=== PATIENT | female | born 1945 | race Caucasian/White ===

== ENCOUNTER 2019-02-11 05:23 | Inpatient (IN) | payer MEDICARE, BC ==
[2019-02-05 14:18] LABS: ALBUMIN 4.2 G/DL (3.4-5.0); ALBUMIN/GLOBULIN RATIO 1.3 (1.1-1.5); ALKALINE PHOSPHATASE 85 IU/L (46-116); BLOOD UREA NITROGEN 14 MG/DL (7-18); BUN/CREATININE RATIO 21.2 (6.6-38.0); CALCIUM 8.8 MG/DL (8.5-10.1); CHLORIDE 99 MMOL/L (99-107); CREATININE 0.66 MG/DL (0.40-0.90); PRE OP ALT 40 U/L (30-65); PRE OP ANION GAP 11 (8-16); PRE OP AST 21 U/L (10-37); PRE OP BILIRUB, TOTAL 0.3 MG/DL (0.0-1.0); PRE OP GLUCOSE 88 MG/DL (70-104); PRE OP POTASSIUM 3.5 MMOL/L (3.4-5.1); PRE OP SODIUM 135 MMOL/L (135-145); TOTAL CARBON DIOXIDE 25.5 MMOL/L (24-32); TOTAL PROTEIN 7.4 G/DL (6.4-8.2); eGFR 88 ML/MIN
[2019-02-05 14:18] LABS: INR 1.1 INR; PRE OP PARTIAL THROMB. TIME 31 SECONDS (22-32)
[2019-02-05 16:09] LABS: BASOPHILS # (AUTO) 0.1 X10'3 (0-0.2); BASOPHILS % (AUTO) 1.1 % (0-1); EOSINOPHILS # (AUTO) 0.2 X10'3 (0-0.9); LYMPHOCYTES # (AUTO) 1.7 X10'3 (1.1-4.8); LYMPHOCYTES % (AUTO) 22.5 % (21-51); MEAN CORPUSCULAR HEMOGLOBIN 26.8 PG (27.0-31.0); MEAN CORPUSCULAR HGB CONC 32.9 g/dL (33.0-36.5); MEAN CORPUSCULAR VOLUME 81.5 FL (78-98); MEAN PLATELET VOLUME 9.1 FL (7.4-10.4); MONOCYTES # (AUTO) 0.5 X10'3 (0-0.9); NEUTROPHILS # (AUTO) 5.2 X10'3 (1.8-7.7); NEUTROPHILS % (AUTO) 67.4 % (42-75); PRE OP HEMATOCRIT 41.8 % (35.0-45.0); PRE OP HEMOGLOBIN 13.8 g/dL (12.0-16.0); PRE OP PLATELET COUNT 264 X10'3 (140-440); RED BLOOD COUNT 5.14 X10'6 (4.20-5.60); RED CELL DISTRIBUTION WIDTH 18.7 % (11.5-14.5)
[2019-02-05 16:40] LABS: ANISOCYTOSIS 2+; ELLIPTOCYTES FEW; PLATELET ESTIMATE NORMAL; SCHISTOCYTES FEW
[2019-02-11] VITALS (21 sets, daily range): BP systolic 89–148; BP diastolic 46–78
[~2019-02-11] VITALS: Ht 149.9 cm; Wt 72.1 kg
[~2019-02-11 05:23] MED LIST: AMLO10TA PO; CHOL100062 PO; CYCL-1 PO; LACT1CAP65 PO; LEVO75TA PO; MULT-1085 PO; OMEP20CA10 PO; SIMV20TA5 PO; VALA-7 PO; ringers solution, lacted 1,000 ML IV SCH
[2019-02-11] MEDS ORDERED: ceFAZolin 2gm in dextrose, iso 100 ML IV ONE (05:30)
[2019-02-11] MEDS ORDERED: gabapentin 300mg capsule PO ONE (05:30)
[2019-02-11] MEDS ORDERED: oxyCODONE SR 10mg (sust. release) tab PO ONE (05:30)
[2019-02-11] MEDS ORDERED: famotidine 20mg tablet PO ONE (05:30)
[2019-02-11] MEDS ORDERED: metoclopramide 5 mg/ml inj IV ONE (05:30)
[2019-02-11] MEDS ORDERED: acetaminophen 325mg tablet PO ONE (05:30)
[2019-02-11] MEDS ORDERED: vancomycin inj 1,500 MG in normal saline 300ml IV soln IV ONE (05:30)
[2019-02-11] MEDS ORDERED: tranexamic acid inj. 1,000 MG in normal saline 100 ML IV ONE (05:30)
[2019-02-11] MEDS ORDERED: LIDOcaine 1% (10mg/ml) 2ml vial ONE (05:49)
[2019-02-11] MEDS ORDERED: vancomycin 1,000mg inj ONE (06:59)
[2019-02-11] MEDS ORDERED: Thrombin (Bovine) 5,000 unit vial TP ONE (06:59)
[2019-02-11] MEDS ORDERED: ceFAZolin 1000mg inj ONE (06:59)
[2019-02-11] MEDS ORDERED: acetaminophen 1,000mg/100ml IV 100 ML IV ONE (07:18)
[2019-02-11] MEDS ORDERED: ROPIVAcaine 0.5% (5mg/ml) 30ml vial ONE (07:18)
[2019-02-11] MEDS ORDERED: fentaNYL/PF 50MCG/1 ML 2ML syringe ONE ×2 (07:24→10:06)
[2019-02-11] MEDS ORDERED: midazolam 2 mg/2 ml injection ONE (07:24)
[2019-02-11] MEDS ORDERED: propofol inj 20 ML IV ONE (07:27)
[2019-02-11] MEDS ORDERED: ondansetron/PF 4mg/2ml inj ONE (07:27)
[2019-02-11] MEDS ORDERED: LIDOcaine 2% (20mg/ml) 5ml vial ONE (07:27)
[2019-02-11] MEDS ORDERED: hydrALAZINE 20mg/ml inj. IV PRN (07:30)
[2019-02-11] MEDS ORDERED: morphine 4 MG/ML inj SYRINge IV PRN ×2 (07:30)
[2019-02-11] MEDS ORDERED: ondansetron/PF 4mg/2ml inj IV PRN ×2 (07:30→10:05)
[2019-02-11] MEDS ORDERED: fentaNYL/PF 50MCG/1 ML 2ML syringe IV PRN ×2 (07:30)
[2019-02-11] MEDS ORDERED: labetalol 20mg/4ml (5mg/ml) syringe IV PRN (07:30)
[2019-02-11] MEDS ORDERED: ringers solution, lacted 1,000 ML IV SCH (07:30)
[2019-02-11] MEDS ORDERED: sevoflurane 250ml liquid IH ONE (07:40)
[2019-02-11] MEDS ORDERED: ePHEDrine 50MG/ML INJ. ONE (08:12)
[2019-02-11] MEDS ORDERED: ROPIVAcaine 0.2%/PF PAIN PUMP 550 ML IJ SCH (08:59)
[2019-02-11] MEDS ORDERED: calcium chloride 100 MG/1 ML inj IV ONE (09:01)
[2019-02-11] MEDS ORDERED: dexamethasone sod phosphate 4mg/ml inj. ONE (09:20)
[2019-02-11] MEDS ORDERED: magnesium hydroxide 30ml (MOM) UD suspension PO PRN (10:05)
[2019-02-11] MEDS ORDERED: HYDROmorphone 1 mg/ml syringe IV PRN (10:05)
[2019-02-11] MEDS ORDERED: diphenhydrAMINE 25mg capsule PO PRN ×2 (10:05)
[2019-02-11] MEDS ORDERED: bisacodyl 10mg suppository rectal RC PRN (10:05)
[2019-02-11] MEDS ORDERED: acetaminophen 325mg tablet PO PRN (10:05)
[2019-02-11] MEDS ORDERED: oxyCODONE IR 5mg (immed. release) tablet PO PRN (10:05)
[2019-02-11] MEDS ORDERED: HYDROmorphone inj. 0.5 MG/0.5 ML DISP.SYRIN IV PRN (10:05)
--- NOTE | 2019-02-11 10:17 | NUR ---
Received from OR via BED, accompanied by Anesthesiologist DR RIVERA and report given by Anesthesiologist. PT VERY DROWSY, NO S/S OF DISTRESS/DISCOMFORT, RIGHT SHOULDER W/DRSG, ICE PACK, SHOULDER WRAP, SLING, FINGERS PWD. Addendum: 02/11/19 at 1052 by Shaneka Oshea RN Amended: Links added.
--- NOTE | 2019-02-11 11:47 | NUR ---
Report called to receiving nurse. Transferred via BED, 1 BAG OF PERSONAL Belongings SENT W/PT TO ROOM 401, [facility], CALL LIGHT GIVEN TO PT, SIDE RAILS UP X 2, RECEIVING RN AT BEDSIDE, PTS PRESENT. Special Issues communicated to receiving nurse. YES. Addendum: 02/11/19 at 1207 by Shaneka Oshea RN Amended: Links added.
--- NOTE | 2019-02-11 11:50 | NUR ---
pt arrived on floor in ortho bed very sleepy received report from janusz bowens
[2019-02-11] MEDS ORDERED: cyclobenzaprine 10mg tablet PO PRN (12:40)
[2019-02-11] MEDS ORDERED: tranexamic acid inj. 720 MG in normal saline 100ml IV soln 100 ML IV ONE (13:00)
[2019-02-11] MEDS: gabapentin 300mg capsule PO SCH ×2 (13:20→20:10)
[2019-02-11] MEDS: acetaminophen 325mg tablet PO SCH ×2 (13:45→20:10)
[2019-02-11] MEDS ORDERED: polyvinyl alcohol ophthalmic drops 15ml bottle EACHEYE PRN (13:55)
[2019-02-11] MEDS: potassium cl 20mEq in 1/2 NS 1,000 ML IV SCH ×2 (14:35→16:07)
[2019-02-11] MEDS: ceFAZolin 1GM/D5W- ADD-VANTAGE 50 ML IV SCH (16:06)
--- NOTE | 2019-02-11 18:18 | NUR ---
RECEIVED REPORT FROM OLLIE HOANG AND ASSUMED PATIENT CARE Addendum: 02/11/19 at 1828 by Ritu Carty RN RECEIVED REPORT FROM NIDHI HOANG
--- NOTE | 2019-02-11 18:28 | NUR ---
gave report to janusz perez
[2019-02-11] MEDS ORDERED: vancomycin/NS 1 GM ADD-VANTAGE 250 ML IV SCH (20:00)
[2019-02-11] MEDS: valacyclovir 500mg tablet PO SCH (20:09)
[2019-02-11] MEDS ORDERED: atorvastatin 10mg tablet PO SCH (21:00)
[2019-02-11] MEDS ORDERED: sennosides 8.6mg tablet PO SCH (21:00)
--- NOTE | 2019-02-11 22:02 | NUR ---
REPORT GIVEN TO LYNNETTE HOANG
--- NOTE | 2019-02-11 23:00 | NUR ---
report received from VIKTOR Maya
[2019-02-12] MEDS: ceFAZolin 1GM/D5W- ADD-VANTAGE 50 ML IV SCH (00:13)
[2019-02-12 02:00] VITALS: BP 138/65
[2019-02-12] MEDS: potassium cl 20mEq in 1/2 NS 1,000 ML IV SCH ×2 (02:01→02:49)
[2019-02-12] MEDS: acetaminophen 325mg tablet PO SCH ×3 (02:06→15:36)
[2019-02-12] MEDS: oxyCODONE IR 5mg (immed. release) tablet PO PRN ×3 (05:35→15:35)
[2019-02-12 06:11] LABS: ANION GAP 10 (8-16); CHLORIDE 104 MMOL/L (99-107); POTASSIUM 3.9 MMOL/L (3.5-5.1); SODIUM 138 MMOL/L (135-145); TOTAL CARBON DIOXIDE 24.4 MMOL/L (24-32)
[2019-02-12 06:22] LABS: BASOPHILS % (AUTO) 0.1 % (0-1); EOSINOPHILS % (AUTO) 0 % (0-6); HEMATOCRIT 37.9 % (35.0-45.0); HEMOGLOBIN 12.5 g/dl (12.0-16.0); LYMPHOCYTES # (AUTO) 0.9 X10'3 (1.1-4.8); LYMPHOCYTES % (AUTO) 7.6 % (21-51); MEAN CORPUSCULAR HEMOGLOBIN 26.6 PG (27.0-31.0); MEAN CORPUSCULAR VOLUME 80.5 FL (78-98); MEAN PLATELET VOLUME 9.2 FL (7.4-10.4); MONOCYTES # (AUTO) 0.9 X10'3 (0-0.9); MONOCYTES % (AUTO) 7.5 % (2-12); NEUTROPHILS # (AUTO) 10.1 X10'3 (1.8-7.7); NEUTROPHILS % (AUTO) 84.8 % (42-75); PLATELET COUNT 235 X10'3 (140-440); RED BLOOD COUNT 4.71 X10'6 (4.20-5.60); RED CELL DISTRIBUTION WIDTH 18.6 % (11.5-14.5); WHITE BLOOD COUNT 11.9 X10'3 (4.5-11.0)
[2019-02-12 06:30] VITALS: BP 148/69
--- NOTE | 2019-02-12 06:30 | NUR ---
I have received patient report from Analilia HOANG
[2019-02-12] MEDS ORDERED: levoTHYROXINE 75mcg tablet PO SCH (07:00)
[2019-02-12] MEDS: gabapentin 300mg capsule PO SCH ×2 (07:17→12:39)
[2019-02-12] MEDS ORDERED: pantoprazole 40mg Tablet.DR PO SCH (07:30)
[2019-02-12] MEDS: valacyclovir 500mg tablet PO SCH (08:00)
[2019-02-12] MEDS ORDERED: vitamin D (cholecalciferol) 1,000 unit tablet PO SCH (08:00)
[2019-02-12] MEDS ORDERED: lactobacillus rhamnosus 10,000 MMU CELLS/CAPSULE PO SCH (08:00)
[2019-02-12] MEDS ORDERED: amLODIPine 5mg tablet PO SCH (08:00)
[2019-02-12] MEDS ORDERED: aspirin 325mg tablet PO SCH (08:30)
--- NOTE | 2019-02-12 08:38 | NUR ---
onq boosted to 8ml/hr
[2019-02-12 10:00] VITALS: BP 149/68
[2019-02-12 11:21] LABS: ANISOCYTOSIS 2+; BURR CELLS FEW; ELLIPTOCYTES FEW; PLATELET ESTIMATE NORMAL; SCHISTOCYTES FEW
--- NOTE | 2019-02-12 13:28 | NUR ---
Joint replacement consult: Pt seen by ROOSEVELT for written/verbal high protein ed. RD reviewed high protein needs for wound healing, immune strength, high protein foods, and protein supplementation options. RD contact information provided in case of further questions. Pt agrees to [facility] high protein carmen MUHAMMAD; and dietary notified. Addendum: 02/12/19 at [address] Amended: Links added.
[2019-02-12 14:00] VITALS: BP 106/42
--- NOTE | 2019-02-12 17:20 | NUR ---
Patient discharged with they were taught all discharge instruction. She had all personal belongings.
[2019-02-12] MEDS ORDERED: High Protein Smoothie Arginine/Glut./Ca2+Bmb (Juven 19.3pkt) 240ml cup PO SCH (17:30)
[2019-02-13] MEDS ORDERED: acetaminophen 325mg tablet PO PRN (10:05)
== END 2019-02-12 17:20 | disposition home or self-care (01) | DRG 483 ==
LOC: PAS IN 05:23 → EDSTATUS 07:30 → ORTHO 4S 11:50
PROVIDERS: ADMIT Orthopaedic Surgery; ATTEND Orthopaedic Surgery
PROC: 3E0T3BZ Introduction of Anesthetic Agent into Peripheral Nerves and Plexi, Percutaneous Approach (ICD-10-PCS; 2019-02-11)
PROC: 0RRJ0JZ Replacement of Right Shoulder Joint with Synthetic Substitute, Open Approach (ICD-10-PCS; principal; 2019-02-11 07:40)
DX: M19.011 Primary osteoarthritis, right shoulder (principal); E03.9 Hypothyroidism, unspecified; E78.5 Hyperlipidemia, unspecified; E66.9 Obesity, unspecified; I10 Essential (primary) hypertension; K21.9 Gastro-esophageal reflux disease without esophagitis; G89.29 Other chronic pain; M54.9 Dorsalgia, unspecified; Z68.32 Body mass index [BMI] 32.0-32.9, adult; Z88.5 Allergy status to narcotic agent; Z91.048 Other nonmedicinal substance allergy status
CPT/HCPCS: 36415; 71046; 73020; 80051; 80053; 82948; 84443; 85025; 85610; 85730; 87070; 97110; 97116; 97161; 97530; A4565; A7000; C1713; C1776; G0378; J0131; J0690; J1100; J2001; J2250; J2405; J2704; J2765; J2795; J3010; J3370; J3490; J7030; J7120

== ENCOUNTER → 2023-10-17 | Outpatient (CLI) | payer MEDICARE, BC ==
[~2023-10-17] VITALS: Ht 149.9 cm; Wt 72.0 kg
[2023-10-17] VITALS (7 sets, daily range): BP systolic 147–182; BP diastolic 61–77; PULSE 64–85; RESP 18; O2SAT 98
[~2023-10-17] MED LIST changes: +ACET-3071 PO; +ALEN70TA80 PO; +ALLER-TEC; +ATOR20TA66 PO; +CALCIUM; +CARB15DR EACHEYE; -CYCL-1 PO; +CYCL5TAB PO; -LACT1CAP65 PO; +LOSA100T58 PO; -MULT-1085 PO; -OMEP20CA10 PO; +OMEP20CA15 PO; -SIMV20TA5 PO; +aminophylline 250mg/10ml inj. IV PRN; +nitroGLYCERIN 0.4mg SUBLingual tab SL PRN; +regadenoson 0.4mg/5ml syringe IV ONE; -ringers solution, lacted 1,000 ML IV SCH
== END | disposition home or self-care (01) ==
LOC: NM 07:43
PROVIDERS: ATTEND Internal Medicine Cardiovascular Disease
DX: R94.31 Abnormal electrocardiogram [ECG] [EKG] (principal)
CPT/HCPCS: 78452; 93017; A9500; J2785

== ENCOUNTER 2023-10-22 11:05 | Day surgery (SDC) | payer MEDICARE, BC ==
[2023-10-16 11:55] LABS: BILIRUBIN,URINE NEGATIVE (Neg); CLARITY,URINE CLEAR (Clear); COLOR,URINE STRAW (Yellow); GLUCOSE, URINE NEGATIVE (Neg); KETONES,URINE NEGATIVE (Neg); LEUKOCYTE ESTERASE ,URINE NEGATIVE (Neg); NITRITES, URINE NEGATIVE (Neg); OCCULT BLOOD,URINE NEGATIVE (Neg); PROTEIN,URINE NEGATIVE (Neg); UROBILINOGEN,URINE 0.2 E.U/dL (0.2-1.0)
[2023-10-16 12:12] LABS: UA COLLECTION TYPE VOIDED
[2023-10-16 12:13] LABS: BASOPHILS # (AUTO) 0.1 X10'3 (0-0.2); BASOPHILS % (AUTO) 1.2 % (0-1); EOSINOPHILS # (AUTO) 0.1 X10'3 (0-0.9); EOSINOPHILS % (AUTO) 2.1 % (0-6); LYMPHOCYTES # (AUTO) 1.5 X10'3 (1.1-4.8); MEAN CORPUSCULAR HEMOGLOBIN 30.1 PG (27.0-31.0); MEAN CORPUSCULAR HGB CONC 33.1 g/dL (33.0-36.5); MEAN CORPUSCULAR VOLUME 90.9 FL (78-98); MEAN PLATELET VOLUME 8.5 FL (7.4-10.4); MONOCYTES # (AUTO) 0.5 X10'3 (0-0.9); MONOCYTES % (AUTO) 7.6 % (2-12); NEUTROPHILS # (AUTO) 4.3 X10'3 (1.8-7.7); NEUTROPHILS % (AUTO) 66.1 % (42-75); PRE OP HEMOGLOBIN 14.5 g/dL (12.0-16.0); PRE OP PLATELET COUNT 251 X10'3 (140-440); PRE OP WHITE BLOOD COUNT 6.5 10'3 (4.8-10.8); RED BLOOD COUNT 4.84 X10'6 (4.20-5.60); RED CELL DISTRIBUTION WIDTH 15.2 % (11.5-14.5)
[2023-10-16 12:25] LABS: PRE OP PROTIME 10.8 SECONDS (9.0-12.0)
[2023-10-16 12:39] LABS: ALBUMIN 4.2 G/DL (3.4-5.0); ALBUMIN/GLOBULIN RATIO 1.1 (1.1-1.5); ALKALINE PHOSPHATASE 90 IU/L (46-116); BLOOD UREA NITROGEN 22 MG/DL (7-18); BUN/CREATININE RATIO 30.1 (10.0-20.0); CALCIUM 9.1 MG/DL (8.5-10.1); CHLORIDE 100 MMOL/L (99-107); CREATININE 0.73 MG/DL (0.40-0.90); PRE OP ALT 26 U/L (30-65); PRE OP ANION GAP 10 (8-16); PRE OP AST 15 U/L (10-37); PRE OP BILIRUB, TOTAL 0.5 MG/DL (0.0-1.0); PRE OP GLUCOSE 92 MG/DL (70-104); PRE OP POTASSIUM 3.6 MMOL/L (3.4-5.1); PRE OP SODIUM 136 MMOL/L (135-145); THYROID STIMULATING HORMONE 2.35 ulU/ml (0.34-4.50); TOTAL PROTEIN 7.9 G/DL (6.4-8.2); eGFR 77 ML/MIN
[~2023-10-22] VITALS: Ht 149.9 cm; Wt 71.7 kg
[~2023-10-22 11:05] MED LIST changes: -ALLER-TEC; +CALC600T14 PO; -CALCIUM; +CETI10TA14 PO; -CHOL100062 PO; +CHOL20002 PO; -aminophylline 250mg/10ml inj. IV PRN; +cefazolin 2gm/D5W 100mL 100 ML IV ONE; +famotidine 20mg tablet PO ONE; -nitroGLYCERIN 0.4mg SUBLingual tab SL PRN; -regadenoson 0.4mg/5ml syringe IV ONE; +ringers solution, lacted 1,000 ML IV SCH; +tranexamic acid inj. 1,000 MG in normal saline IV soln 100ML IV ONE
[2023-10-22] MEDS ORDERED: morphine 4 MG/ML inj SYRINge IV PRN (11:40)
[2023-10-22] MEDS ORDERED: proCHLORperazine 10 MG/2 ml inj IV PRN (11:40)
[2023-10-22] MEDS ORDERED: meperidine/PF 25mg/ml syringe IV PRN ×3 (11:40)
[2023-10-22] MEDS ORDERED: labetalol 20mg/4ml (5mg/ml) syringe IV PRN (11:40)
[2023-10-22] MEDS ORDERED: morphine 2 MG/ML inj. syringe IV PRN (11:40)
[2023-10-22] MEDS ORDERED: ringers solution, lacted 1,000 ML IV SCH (11:40)
[2023-10-22] MEDS ORDERED: ondansetron/PF 4mg/2ml inj IV PRN (11:40)
[2023-10-22] MEDS ORDERED: enalaprilat dihydrate 2.5mg/2ml vial IV PRN (11:40)
[2023-10-22] MEDS ORDERED: vancomycin 1,000mg inj ONE (11:53)
[2023-10-22] MEDS ORDERED: methylene blue (5mg/ml) 50mg/10ml ampul IV ONE (11:54)
== END 2023-10-22 11:30 | disposition home or self-care (01) ==
LOC: UNDOADMIN 11:05 → PAS IN 11:05 → PAS 11:05 → EDSTATUS 14:00
PROVIDERS: ATTEND Specialist
DX: T84.098A Other mechanical complication of other internal joint prosthesis, initial encounter (principal); Z53.8 Procedure and treatment not carried out for other reasons; E78.5 Hyperlipidemia, unspecified; I10 Essential (primary) hypertension; E03.9 Hypothyroidism, unspecified; M19.032 Primary osteoarthritis, left wrist; M17.0 Bilateral primary osteoarthritis of knee; G89.29 Other chronic pain; Z79.899 Other long term (current) drug therapy; Z88.5 Allergy status to narcotic agent; Z72.89 Other problems related to lifestyle; Z98.890 Other specified postprocedural states; F10.91 Alcohol use, unspecified, in remission; Z96.643 Presence of artificial hip joint, bilateral; Z91.048 Other nonmedicinal substance allergy status; Z79.01 Long term (current) use of anticoagulants; Y83.8 Other surgical procedures as the cause of abnormal reaction of the patient, or of later complication, without mention of misadventure at the time of the procedure; Y92.89 Other specified places as the place of occurrence of the external cause
CPT/HCPCS: 36415; 71046; 80053; 81003; 84443; 85025; 85610; 85730; 86870; 86885; 86900; 86901; 86922; 87081; J0690; J3490; J7120; 86902; 86905; J3370; Q9968

== ENCOUNTER 2024-08-05 09:24 | Outpatient (CLI) | payer MEDICARE, OTHER ==
[~2024-08-05 09:24] MED LIST changes: +KEN0.1O TP; +ONDA-243 PO; -VALA-7 PO; +VALA100031 PO; -cefazolin 2gm/D5W 100mL 100 ML IV ONE; -famotidine 20mg tablet PO ONE; -ringers solution, lacted 1,000 ML IV SCH; -tranexamic acid inj. 1,000 MG in normal saline IV soln 100ML IV ONE
== END 2024-08-05 23:59 | disposition home or self-care (01) ==
LOC: RAD 09:24
PROVIDERS: ATTEND Specialist
DX: S42.124A Nondisplaced fracture of acromial process, right shoulder, initial encounter for closed fracture (principal); M25.511 Pain in right shoulder; Z96.611 Presence of right artificial shoulder joint; T84.098D Other mechanical complication of other internal joint prosthesis, subsequent encounter; X58.XXXA Exposure to other specified factors, initial encounter; Y93.89 Activity, other specified; Y92.89 Other specified places as the place of occurrence of the external cause; Y99.8 Other external cause status; X58.XXXD Exposure to other specified factors, subsequent encounter
CPT/HCPCS: 73200; 76377

== ENCOUNTER 2025-04-24 13:46 | Emergency (ER) | payer MEDICARE, OTHER ==
[~2025-04-24] VITALS: Ht 149.9 cm; Wt 79.1 kg
[~2025-04-24 13:46] MED LIST changes: +CYCL-920 PO; -CYCL5TAB PO
[2025-04-24 13:48] VITALS: BP 158/62; PULSE 69; TEMP 97.9; O2SAT 97
--- NOTE | 2025-04-24 16:18 | RADIOLOGY REPORT ---
X-ray left knee Technique: Lateral and oblique views REASON FOR EXAM: KNEE PAIN INDICATION: KNEE PAIN FINDINGS: No fractures or dislocations. No erosions or periosteal reaction. On the lateral there is n arrowing of the patellofemoral joint space with downward osteophyte formation IMPRESSION: 1. Degenerative changes of the patellofemoral joint
--- NOTE | 2025-04-24 17:30 | Physician Documentation ---
History of Present Illness ~ Chief Complaint: Knee Pain Stated Complaint: L KNEE PAIN Time Seen by MD: 15:45 OK to notify your PCP?: Yes Source: patient Mode of Arrival: POV Exam Limitations: no limitations HPI 71-year-old female presents with left knee pain for the past 6 months. She reports getting a steroid knee injection which worked beautifully but now has worn off 6 weeks ago. She has had an ultrasound a couple of weeks ago to rule out a blood clot with the results pending. She has had pain to inferior portion of the knee which now wraps around into her calf. She reports having calf pain for the past 2 years and states that it feels exactly the same there is no difference in the pain quality. Tetanus witin 5 years: No Medication Reconciliation Allergies: Coded Allergies: propoxyphene (Verified Allergy, Mild, 04/24/25) adhesive tape (Verified Allergy, Unknown, RED RASH, 04/24/25) codeine (Verified Adverse Reaction, Unknown, N/V, 04/24/25) hydrocodone (Verified Adverse Reaction, Unknown, NAUSEA, HALLUCINATION, 04/24/25) morphine (Verified Adverse Reaction, Unknown, 04/24/25) HALLUCINATES Scheduled Alendronate Sodium (Alendronate Sodium), 1 TAB PO Q7DSUN, (Reported) Amlodipine Besylate (Amlodipine Besylate), 1 TABLET PO DAILY, (Reported) Atorvastatin Calcium (Atorvastatin Calcium), 2 TAB PO QAM, (Reported) Calcium Carbonate (Calcium), 1 TAB PO QAM, (Reported) Carboxymethylcellulose Sodium (Refresh Tears), 1 DROP EACHEYE BID, (Reported) Cetirizine HCl (Cetirizine HCl), 1 TAB PO DAILY, (Reported) Cholecalciferol (Vitamin D3) (Vitamin D3), 2 CAP PO QAM, (Reported) Levothyroxine Sodium* (Synthroid*), 1 TAB PO DAILY, (Reported) Losartan Potassium (Losartan Potassium), 1 TAB PO QPM, (Reported) Omeprazole (Omeprazole), 1 CAP PO DAILY, (Reported) Valacyclovir HCl (Valacyclovir), 1 TAB PO DAILY, (Reported) Scheduled PRN Acetaminophen (Acetaminophen 8 Hour), 1 TAB PO BID PRN for pain, (Reported) Cyclobenzaprine HCl (Cyclobenzaprine HCl), 1 TAB PO QPM PRN for muscle spasms, (Reported) ONDANSETRON ODT 4mg tablet (Ondansetron Odt), 1 TAB PO Q6H PRN PRN for nausea/vomiting Oxycodone HCl/Acetaminophen (Percocet 5-325 mg Tablet), 1 TAB PO Q12H PRN PRN for pain Triamcinolone Acetonide 0.1% Crm* (Kenalog 0.1% Crm*), 1 APPLIC TP TID PRN for PRN, (Reported) Past Medical History Smoking Status: Never smoker Review of Systems All Other Systems at this time: Reviewed and Negative Physical Exam Vital Signs: RN Vital Signs have been reviewed: Yes, Temperature: 97.9, Source: Oral, Heart Rate: 69, Respiratory Rate: 18, BP: 158/62, Pulse Oximetry: 97, Weight: 79.090 Pulse Oximetry Reflects: adequate oxygenation Physical Exam General: Alert, no distress. HEENT: No injection, moist mucous membranes. Neck: Full range of motion. Respiratory: No respiratory distress, equal chest rise and fall. Chest: No accessory muscle use. Cardiovascular: Regular rate and rhythm. Gastrointestinal: Nondistended. Extremities: Normal range of motion, no deformity. Ambulatory, tenderness to palpation of inferior portion of left knee. No tenderness to palpation of left calf. Bilateral lower extremity edema 1+ pitting. Neurologic: Oriented x4. Psychiatric: Normal mood and affect. Skin: Normal color, warm and dry. Progress Results/Orders Results/Orders Orders - GRETEL STATONP Knee, Complete (04/24/25 14:39) Completed Orders - GRETEL STATON ENGINEER SPECIALIST Knee, Complete (04/24/25 14:39) Oxycodone/Acetaminophen Tablet (Percocet (04/24/25 17:45) Medications Received in ER Medications (Trade) Dose Ordered Sig/Sundar Route PRN Reason Start Time Stop Time Status Last Admin Dose Admin (Percocet 5-325mg tab) 1 tab ONCE ONCE PO 04/24/25 17:45 04/24/25 17:49 DC 04/24/25 17:57 1 TAB Vital Signs 04/24/25 04/24/25 13:48 17:57 Temp 97.9 Pulse 69 Resp 18 16 B/P (MAP) 158/62 Pulse Ox 97 Medical Decision Making Additional info obtained from: old records Findings 79-year-old female presents with chronic left knee pain. She is requesting medication for pain as well as wanting the results of her recent ultrasound on a [facility]. I discussed that we do not have access to the records and she will have to go with her primary care for that. I do not see any signs or symptoms of a DVT or septic joint. She is ambulatory, there is no normal redness of the left leg. Both legs are symmetric in size and both are 1+ pitting edema. I gave her a Percocet while waiting in the department as well as a prescription. She has tried taking Tylenol and ibuprofen with no relief. She was told that her imaging today of her left knee x-ray was showed degenerative changes but there was no acute fracture or dislocation. She should follow up with her primary care provider in and return back here for any new or worsening symptoms. Knee Diff Dx:Considerations: Include: Fracture-patella, Fracture-tibia, Gout, Neurovascular injury, Septic Departure Disposition: 01 HOME / SELF CARE / HOMELESS Impression: Primary Impression: Knee pain Condition: Stable Discharge Instructions: Chronic Knee Pain, Adult, [id number] Additional Instructions: Can use Tylenol and/or ibuprofen for pain relief. Prescribed Percocet but only use this if the Tylenol and ibuprofen is not working. Please take care not to exceed 4000 mg of Tylenol within a 24 hour period. Please follow up with her primary care provider as you may need further imaging such as an MRI to be done on an outpatient basis. Return back here for any new or worsening symptoms. Today your x-ray showed Degenerative changes of the left patellofemoral joint. Referrals: NO PRIMARY CARE PROVIDER (PCP) Prescriptions Oxycodone HCl/Acetaminophen (Percocet 5-325 mg Tablet) 5 Mg-325 Mg Tablet 1 TAB PO Q12H PRN PRN for pain for 5 Days, #10 TAB 0 Refills Prov: GRETEL STATON [facility] 04/24/25 Education Educated: Patient Educated regarding: diagnosis, treatment, prognosis, need for follow up Additional Comment Medical Screen Exam This patient recieved a medical screening examination. After reviewing the individual's medical complaints with presenting symptoms and performing an appropriate physical examination, it was determined that no immediate life- threatening emergency medical condition is present. This individual is also not a women having contractions. Signature Scribe Signature: . Attestation: Scribed for Gretel Staton Laboratory Geneticist by Gretel Perdomo NP . 04/24/25 18:38 Parts of this note were created using [employer] voice recognition software program. While efforts were made to correct any mistakes made by this voice recognition software program, nonsensical phrases may remain in this note. In addition, there may be errors and syntax, grammar, content and spelling. GRETEL STATON ENGINEER SPECIALIST Apr 24, 2025 17:30
[2025-04-24] MEDS ORDERED: OXYC-145 PO (17:44)
[2025-04-24 17:57] VITALS: RESP 16
[2025-04-24] MEDS: oxyCODONE/APAP 5-325mg tablet PO ONE (17:57)
== END 2025-04-24 18:00 | disposition home or self-care (01) ==
LOC: ER 13:46
DX: M25.562 Pain in left knee (principal); Z88.5 Allergy status to narcotic agent
CPT/HCPCS: 73564; 99284

== ENCOUNTER 2025-05-07 16:26 | Outpatient (CLI) | payer MEDICARE, OTHER ==
[~2025-05-07 16:26] MED LIST changes: +OXYC-145 PO
--- NOTE | 2025-05-08 07:55 | RADIOLOGY REPORT ---
CLINICAL HISTORY: PAIN IN L KNEE COMPARISON: None TECHNIQUE: Multisequence multiplanar MRI images of the left knee were obtained without contrast. FINDINGS: Cruciate ligaments: ACL and PCL are intact. Extensor mechanism: Quadriceps mechanism and patellar tendon are intact. Collateral ligaments: Medial and lateral collateral ligaments are intact and otherwise unremarkable. Menisci: There is blunting of the free edge of the body of the medial meniscus, may be due to free ed ge fraying or small free edge tear. Lateral meniscus is intact. 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 Severe gaby int space narrowing of the patellofemoral compartment also noted. Chondral thinning in the medial and lateral compartments. Bones: Mild subchondral marrow edema in the medial tibial plateau with possible small thin subchondra l fracture. Joint fluid: Moderate joint effusion. Other: Popliteal cyst measures up to 5.7 cm in craniocaudal dimension. IMPRESSION: 1. Blunting of the free edge of the body of the medial meniscus, may be due to free edge fraying or s mall free edge tear. 2. Tricompartmental chondromalacia, greatest of the patellofemoral compartment, where there are grade 4 changes and associated severe arthritic changes. 3. Mild subchondral edema of the medial tibial plateau with possible small subchondral fracture. 4. Moderate joint effusion. 5. Popliteal cyst.
== END 2025-05-07 23:59 | disposition home or self-care (01) ==
LOC: MRI02 16:26
PROVIDERS: ATTEND Family Medicine
DX: M17.12 Unilateral primary osteoarthritis, left knee (principal); M94.262 Chondromalacia, left knee; M25.462 Effusion, left knee; M71.22 Synovial cyst of popliteal space [Baker], left knee; M25.862 Other specified joint disorders, left knee; M25.562 Pain in left knee
CPT/HCPCS: 73721